=== PATIENT | female | born 1995 | race Caucasian/White ===

== ENCOUNTER 2016-08-24 07:01 | Emergency (ER) | payer OTHER, MEDICAID ==
[~2016-08-24] VITALS: Ht 170.2 cm; Wt 81.6 kg
[~2016-08-24 07:01] MED LIST: AZITHROMYCIN250 MG PO; BENZONATATE100 MG PO; CEFZIL250 MG PO; CLARITIN10 MG OR; KEFLEX 500MG.500 MG PO; MOTRIN 400MG.400 MG PO; NOMEDS *; PROMETHAZINE5 ML/UDC PO; TAMIFLU75 MG PO; TYLENOL EXTRA500 M1 PO; TYLENOL W/CODEI1 TA2 PO; VOLTAREN75 MG PO; ZOFRAN4 MG PO; [UNRECOGNIZED DRUG - OTHER]
[2016-08-24] MEDS ORDERED: GLYCOLAX17 GM/DOSE PO (07:14)
--- NOTE | 2016-08-24 07:22 | Emergency Room Report ---
History of Present Illness Time Seen by 0720 Presenting Problem in Triage Pt arrived:Wheelchair Presenting Problem:PT STATES HAS BEEN MORE DIZZY THAN NORMAL TODAY SINCE WAKING UP. PT STATES HAS BEEN DIZZY ALL WEEK UPON WAKING UP. PT STATES SHE IS 11 WEEKS . Onset of symptoms date/time:08/24/16/ or onset unknown for:MEDICAL HX UNKNOWN Treatment Prior to Arrival: GI PHYSICIAN Provided by: Sepsis Risk Assessment: Temp: 98.9 B/P: 151/70 MAP: 97 Pulse: 88 Resp: 20 Recent fever? N Clinical Suspician of Infection? N Mental Status: 1 - Regular (Normal Baseline) Sepsis Risk:Low Sepsis Risk Have you (or family members/close friends) recently traveled outside the [place]? N If Yes, where/when: Have you had exposure to infectious disease within the past month? N TB? Other? Specify: Source patient, RN notes reviewed, family, old records Exam Limitations no limitations Comment pt is 11 weeks with dizzyness through out week worse today w/o fever or trauma and no rash - no uri sx - does have assoc nausea and vomiting Cardiac Chest Pain Chest pain indicative of cardiac No Timing/Duration this evening Severity moderate ALLERGIES Coded Allergies: No Known Allergies (11/08/15) Home Medications Reported Medications Polyethylene Glycol 3350 (Glycolax) 17 GM PO DAILY #527 History Medical History General CAD? No Angina: No [place]: No Hypertension? No Hyperlipidemia? No CHF? No DVT? No PE? No COPD? No Asthma? No Anemia? No GERD? No Gastric ulcers? No GI Bleed? No Hernia? No Thyroid Problems? No Hypothyroidism? No CVA? No Seizures? No Diabetes? No Insulin Dependent: No Insulin Pump: No Home FSBS? No Renal Insuffiency? No End Stage Renal Disease? No UTI? No Stones? No BPH? No GB Disease: No Nephritic Syndrome? No Asplenia? No Hepatitis? No Sickle Cell Disease? No Arthritis? No Migraines? No Cataracts? No Glaucoma? No MRSA? No HIV? No TB? No Anxiety? No Depression? No Cancer? No More? 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 Respiratory denies cough, denies shortness of breath, denies wheezing Cardiovascular denies chest pain, denies palpitations, denies syncope Gastrointestinal see HPI, denies abdominal pain, denies diarrhea, nausea, denies vomiting Genitourinary see HPI. denies: abnormal vaginal bleeding, frequency, hesitancy. Musculoskeletal denies back pain, denies joint pain, denies joint swelling, denies neck pain Skin denies rash Psychiatric/Neurological see HPI, denies headache, denies seizure, other Physical Exam Vital Signs Vital Signs Date Time Temp Pulse Resp B/P Pulse O2 O2 Flow FiO2 Ox Delivery Rate 08/24 0846 80 20 106/46 100 08/24 0810 85 20 107/69 100 08/24 0702 98.9 88 20 151/70 99 - WBC >12,000 or <4,000 or 10% bands? 2 or more SIRS Criteria Met? B/P:106/46 MAP:97 Creatinine >2.0? UA output<0.5ml/kg/hr for 2 hrs? Platelet count >100,000? Lactate >2.0mmol/1? INR >1.2 or PTT > than 60 sec? Evidence of Organ Dysfunction? Provider documented clinical suspician of infection? N Sepsis Criteria Count: 1 Sepsis Risk: Low Sepsis Risk General Appearance no apparent distress Eye Exam - bilateral eye PERRL, bilateral eye EOMI Ear, Nose, Throat normal ENT inspection Neck supple Respiratory Status No: respiratory distress. Lung Sounds bilateral: lungs clear. 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 No Results/Orders Laboratory Tests 08/24/16 0840: Urine Color YELLOW, Urine Appearance CLEAR, Urine pH 6.0, Ur Specific [place] <= 1.005, Urine Protein NEGATIVE, Urine Ketones NEGATIVE, Urine Blood NEGATIVE, Urine Nitrate NEGATIVE, Urine Bilirubin NEGATIVE, Urine Urobilinogen 0.2, Ur Leukocyte Esterase NEGATIVE, Urine WBC 3-5, Ur Squamous Epith Cells OCC, Urine Bacteria 2+, Urine Mucus OCC, Urine Glucose NEGATIVE 08/24/16 0720: Sodium 136, Potassium 3.6, Chloride 102, Carbon Dioxide 25, BUN 6 L, Creatinine 0.5 L, Estimated Creat Clear 231 H, Estimated GFR (MDRD) 157, Glucose 97, Calcium 9.3, Total Bilirubin 0.3, AST 10 L, ALT 19, Alkaline Phosphatase 54, Total Protein 7.4, Albumin 3.5, Globulin 3.9 H, Albumin/Globulin Ratio 0.9 L, WBC 8.7, RBC 4.01 L, Hgb 13.3, Hct 36.5 L, MCV 91.1, RDW 12.1, Plt Count 208, MPV 6.9 L, Gran % 70.1, Gran # 6.1, Lymphocytes % 25.2, Monocytes % 3.6, Eosinophils % 0.6, Basophils % 0.4, Lymphocytes # 2.2, Monocytes # 0.3, Eosinophils # 0.1, Basophils # 0.0, PUBS MCHC 36.4 H, MCH 33.1 H Current Medication Orders Sig/Filomena Start time Last Medication Dose Route Stop Time Status Admin Sodium Chloride 1,000 ML .Q1H1M 08/24 0900 AC 08/24 IV 08/24 1000 0847 Sodium Chloride 10 ML PRN PRN 08/24 0900 AC IV 08/25 0846 Sodium Chloride 1,000 ML .STK-MED ONE 08/24 0846 DC IV Promethazine HCl 12.5 MG ONCE ONE 08/24 0830 DC 08/24 IV 08/24 0831 0822 Sodium Chloride 25 ML ONCE ONE 08/24 0830 DC 08/24 IV 08/24 0844 0823 Promethazine HCl 0 .STK-MED ONE 08/24 0818 DC .ROUTE Sodium Chloride 25 ML .STK-MED ONE 08/24 0818 DC IV Sodium Chloride 10 ML PRN PRN 08/24 0730 AC IV 08/25 0722 Sodium Chloride 1,000 ML .Q1H1M 08/24 0730 DC 08/24 IV 08/24 0830 0730 Sodium Chloride 10 ML PRN PRN 08/24 0730 AC IV 08/25 0722 Orders Procedure Date/time Status CULTURE, URINE 08/24 0840 Active IV SALINE LOCK 02/14 0723 Active URINALYSIS/COMPLETE 08/24 722 Complete COMPLETE METABOLIC PANEL 08/24 722 Complete CBC WITH AUTO DIFF 08/24 722 Complete Departure Departure Time of Disposition 08 Disposition DC Home or Self Care(routine) Clinical Impression Primary Impression: Vertigo Secondary Impressions: Qualifiers: Weeks of gestation: 11 weeks Qualified Code: Z3A.11 - 11 weeks gestation of Condition STABLE Patient Instructions DI for -- Discomforts and Remedies Additional Instructions fluids and use meds and see pcp for follow up Discharge Counseling Counseled pt/family regarding diagnosis, test results, medications/RX, follow up needs Prescriptions Current Visit Scripts PROMETHAZINE HCL (Phenergan 25MG Tab (Geq)) 25 MG PO Q6HP PRN N/V #14 TAB ED Critical Care Critical Care No at 0906
[2016-08-24 07:43] LABS: HEMOGLOBIN 13.3 g/dL (12.2-16.2); LYMPH # 2.2 K/mm3 (0.7-4.5); LYMPH % 25.2 % (10-50.0)
[2016-08-24 08:50] LABS: URINE BILIRUBIN - DIPSTICK NEGATIVE (NEG); URINE BLOOD NEGATIVE (NEG)
[2016-08-24 09:05] LABS: URINE SQUAMOUS CELLS OCC #/hpf (0-5)
[2016-08-24] MEDS ORDERED: PHENERGAN25 M3 PO (09:06)
[2016-08-24 09:25] VITALS: BP 123/78
[2016-09-10] MEDS ORDERED: ZOFRAN4 MG PO (09:09)
[2016-09-10] MEDS ORDERED: PRENATAL PLUS1 TA1 PO (09:09)
[2016-09-10] MEDS ORDERED: TAMIFLU 75MG CA75 MG PO (09:37)
== END 2016-08-24 09:26 | disposition home or self-care (01) ==
LOC: ER 07:01
PROVIDERS: Emergency Medicine
DX: R42 Dizziness and giddiness (principal); Z3A.11 11 weeks gestation of pregnancy

== ENCOUNTER 2017-03-24 09:59 | Emergency (ER) | payer MEDICAID ==
[~2017-03-24] VITALS: Ht 170.2 cm; Wt 86.2 kg
[~2017-03-24 09:59] MED LIST changes: +GLYCOLAX17 GM/DOSE PO; +PHENERGAN25 M3 PO; +PRENATAL PLUS1 TA1 PO; +TAMIFLU 75MG CA75 MG PO
[2017-03-24] MEDS ORDERED: IMITREX100 MG PO (10:12)
--- NOTE | 2017-03-24 10:22 | Urgent Treatment Center Report ---
History of Present Issue Date/Time Seen by Provider 03/24/17 1014 Visit Reason Pt arrived:Walked Presenting Problem:CONGESTION AND MIAGRANE SINCE YESTERDAY Location if Accident: Onset of symptoms date/time:/ or onset unknown for:MEDICAL HX UNKNOWN Have you (or family members/close friends) recently traveled outside the [place]? N If Yes, where/when: Have you had exposure to infectious disease within the past month? TB? Other? Specify: Patient states that she has not been feeling well for several days States that she recently had a baby and had an epidural about 21/2 weeks ago States that a few days ago she began having a migraine headache and she called her Doctor and they prescribed her Imitrex state that the medication helped the headache then now it has come back and she couldn't get in to see them today so she came here. State that it is the same as her other migraines just not going away as easily. ALLERGIES Coded Allergies: No Known Allergies (02/19/17) Home Medications Reported Medications MULTIVIT-MIN W/FE-FA ( Multivitamin Tablet) 1 TAB PO DAILY Sumatriptan Succinate (Imitrex) 100 MG PO PRN PRN MIAGRANE History Medical History General CAD? No Angina: No [place]: No Hypertension? No Hyperlipidemia? No CHF? No DVT? No PE? No COPD? No Asthma? No Anemia? No GERD? No Gastric ulcers? No GI Bleed? No Hernia? No Thyroid Problems? No Hypothyroidism? No CVA? No Seizures? No Diabetes? No Insulin Dependent: No Insulin Pump: No Home FSBS? No Renal Insuffiency? No UTI? No Stones? No BPH? No GB Disease: No Nephritic Syndrome? No Asplenia? No Hepatitis? No Sickle Cell Disease? No Arthritis? No Migraines? No Cataracts? No Glaucoma? No MRSA? No HIV? No TB? No Anxiety? No Depression? No Cancer? No More? No Immunization HX DT/Tetanus 1-4 YRS Pneumonia Refuses Surgical Hx Previous Surgery?Y WISDOM TEETH Social History Smoking Hx Smoker: Never Smoker Tobacco: No Packs/day < 1 Pack Alcohol Alcohol: No Review of Systems All Other Systems Reviewed and Negative Psychiatric/Neurological headache Physical Exam Vital Signs Vital Signs Date Time Temp Pulse Resp B/P Pulse O2 O2 Flow FiO2 Ox Delivery Rate 09/14 1048 18 03/24 1009 98.2 90 20 141/84 98 General Appearance normal appearance, WD/WN, no apparent distress Eye Exam - bilateral eye normal exam, bilateral eye PERRL, bilateral eye EOMI Respiratory Status Yes: trachea midline, chest symmetrical, non tender chest. No: respiratory distress. 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 No Results/Orders Current Medication Orders Sig/Filomena Start time Last Medication Dose Route Stop Time Status Admin Diphenhydramine HCl 25 MG ONCE ONE 03/24 1045 DC 03/24 IM 03/24 1046 1047 Ketorolac 60 MG ONCE ONE 03/24 1045 DC 03/24 Tromethamine IM 03/24 1046 1048 Metoclopramide HCl 10 MG ONCE ONE 03/24 1045 DC 03/24 IM 03/24 1046 1050 Metoclopramide HCl 0 .STK-MED ONE 03/24 1037 DC .ROUTE Diphenhydramine HCl 0 .STK-MED ONE 03/24 1033 DC .ROUTE Ketorolac 0 .STK-MED ONE 03/24 1033 DC Tromethamine .ROUTE Progress [facility] Progress Notes Comment Patient state that migraine is much better now after medication Mother advised to bottle feed infant for the next 24 hours and follow up with Dr Aranda tomorrow if headache return or continued Departure Departure Time of Disposition 1125 Disposition DC Home or Self Care(routine) Clinical Impression Primary Impression: Migraine Qualifiers: Migraine type: unspecified Status migrainosus presence: without status migrainosus Intractability: intractable Qualified Code: G43.919 - Migraine, unspecified, intractable, without status migrainosus Condition STABLE Patient Instructions DI for Migraine, Migraine -- Adult Additional Instructions Follow up with Dr Manjarrez tomorrow if headache returns Go home and rest and lay down and allow medication to work Bottle feed for the next 24 hours Return if needed Follow up with family doctor Discharge Counseling Counseled pt/family regarding diagnosis, test results, medications/RX, home care, follow up needs at 1125
--- NOTE | 2017-03-24 10:22 | Urgent Treatment Center Report ---
History of Present Issue Date/Time Seen by Provider 03/24/17 1014 Visit Reason Pt arrived:Walked Presenting Problem:CONGESTION AND MIAGRANE SINCE YESTERDAY Location if Accident: Onset of symptoms date/time:/ or onset unknown for:MEDICAL HX UNKNOWN Have you (or family members/close friends) recently traveled outside the [place]? N If Yes, where/when: Have you had exposure to infectious disease within the past month? TB? Other? Specify: Patient states that she has not been feeling well for several days States that she recently had a baby and had an epidural about 21/2 weeks ago States that a few days ago she began having a migraine headache and she called her Doctor and they prescribed her Imitrex state that the medication helped the headache then now it has come back and she couldn't get in to see them today so she came here. State that it is the same as her other migraines just not going away as easily. ALLERGIES Coded Allergies: No Known Allergies (02/19/17) Home Medications Reported Medications MULTIVIT-MIN W/FE-FA ( Multivitamin Tablet) 1 TAB PO DAILY Sumatriptan Succinate (Imitrex) 100 MG PO PRN PRN MIAGRANE History Medical History General CAD? No Angina: No [place]: No Hypertension? No Hyperlipidemia? No CHF? No DVT? No PE? No COPD? No Asthma? No Anemia? No GERD? No Gastric ulcers? No GI Bleed? No Hernia? No Thyroid Problems? No Hypothyroidism? No CVA? No Seizures? No Diabetes? No Insulin Dependent: No Insulin Pump: No Home FSBS? No Renal Insuffiency? No UTI? No Stones? No BPH? No GB Disease: No Nephritic Syndrome? No Asplenia? No Hepatitis? No Sickle Cell Disease? No Arthritis? No Migraines? No Cataracts? No Glaucoma? No MRSA? No HIV? No TB? No Anxiety? No Depression? No Cancer? No More? No Immunization HX DT/Tetanus 1-4 YRS Pneumonia Refuses Surgical Hx Previous Surgery?Y WISDOM TEETH Social History Smoking Hx Smoker: Never Smoker Tobacco: No Packs/day < 1 Pack Alcohol Alcohol: No Review of Systems All Other Systems Reviewed and Negative Psychiatric/Neurological headache Physical Exam Vital Signs Vital Signs Date Time Temp Pulse Resp B/P Pulse O2 O2 Flow FiO2 Ox Delivery Rate 09/14 1048 18 03/24 1009 98.2 90 20 141/84 98 General Appearance normal appearance, WD/WN, no apparent distress Eye Exam - bilateral eye normal exam, bilateral eye PERRL, bilateral eye EOMI Respiratory Status Yes: trachea midline, chest symmetrical, non tender chest. No: respiratory distress. 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 No Results/Orders Current Medication Orders Sig/Filmoena Start time Last Medication Dose Route Stop Time Status Admin Diphenhydramine HCl 25 MG ONCE ONE 03/24 1045 DC 03/24 IM 03/24 1046 1047 Ketorolac 60 MG ONCE ONE 03/24 1045 DC 03/24 Tromethamine IM 03/24 1046 1048 Metoclopramide HCl 10 MG ONCE ONE 03/24 1045 DC 03/24 IM 03/24 1046 1050 Metoclopramide HCl 0 .STK-MED ONE 03/24 1037 DC .ROUTE Diphenhydramine HCl 0 .STK-MED ONE 03/24 1033 DC .ROUTE Ketorolac 0 .STK-MED ONE 03/24 1033 DC Tromethamine .ROUTE Progress [facility] Progress Notes Comment Patient state that migraine is much better now after medication Mother advised to bottle feed infant for the next 24 hours and follow up with Dr Aranda tomorrow if headache return or continued Departure Departure Time of Disposition 1125 Disposition DC Home or Self Care(routine) Clinical Impression Primary Impression: Migraine Qualifiers: Migraine type: unspecified Status migrainosus presence: without status migrainosus Intractability: intractable Qualified Code: G43.919 - Migraine, unspecified, intractable, without status migrainosus Condition STABLE Patient Instructions DI for Migraine, Migraine -- Adult Additional Instructions Follow up with Dr Manjarrez tomorrow if headache returns Go home and rest and lay down and allow medication to work Bottle feed for the next 24 hours Return if needed Follow up with family doctor Discharge Counseling Counseled pt/family regarding diagnosis, test results, medications/RX, home care, follow up needs at 112
[2017-03-24 11:27] VITALS: BP 141/84
== END 2017-03-24 11:31 | disposition home or self-care (01) ==
LOC: UTC 09:59
DX: G43.919 Migraine, unspecified, intractable, without status migrainosus (principal); Z79.899 Other long term (current) drug therapy